=== PATIENT | female | born 1980 | race Caucasian/White ===

== ENCOUNTER 2018-07-30 18:12 | Emergency (ER) | payer OTHER ==
[~2018-07-30] VITALS: Ht 167.6 cm; Wt 69.0 kg
[~2018-07-30 18:12] MED LIST: AMBIEN 5 MG TABL5 M1; CIPRO500 MG PO; HYDROCODON-ACE1 EACH PO; HYDROCORTISONE30 G9 RECTAL; NORCO 5-325 TA1 EACH PO; VITAMIN D31000 UNI2; ZOFRAN ODT4 MG PO
[2018-07-30] MEDS ORDERED: XANAX 0.25 MG0.25 MG PO (18:23)
[2018-07-30] MEDS ORDERED: CYTOMEL 25 MCG25 MC1 PO (18:26)
[2018-07-30] MEDS ORDERED: SYNTHROID88 MCG PO (18:27)
[2018-07-30 18:52] LABS: ABSOLUTE BASOPHILS 0.1 thou/uL (0.0-0.2); ABSOLUTE EOSINOPHILS 0.1 thou/uL (0.0-0.7); ABSOLUTE LYMPHOCYTES 2.2 thou/uL (0.8-5.3); ABSOLUTE MONOCYTES 0.4 thou/uL (0.0-1.2); ABSOLUTE NEUTROPHILS 1.3 thou/uL (1.6-8.1); BASOPHILS 2.9 %; EOSINOPHILS 1.9 %; HEMATOCRIT 42.7 % (37.0-47.0); HEMOGLOBIN 14.4 gm/dL (12.0-15.0); LYMPHOCYTES 53.8 %; MCH 30.3 pg (26.0-34.0); MCHC 33.7 g/dL (28.0-37.0); MCV 89.8 fL (80.0-100.0); NUCLEATED RBCS 0 /100WBC; PLATELET COUNT* 248 thou/uL (150-400); POLYS 32.4 %; RBC 4.75 mil/uL (4.20-5.00); RDW-CV 13.7 % (10.5-14.5)
[2018-07-30 18:56] LABS: CALCIUM 8.7 mg/dL (8.5-10.1); CREATININE 0.8 mg/dL (0.6-1.3); POTASSIUM 3.5 mmol/L (3.5-5.1)
[2018-07-30 19:00] LABS: ALBUMIN 4.3 g/dL (3.4-5.0); TOTAL BILIRUBIN 0.7 mg/dL (<0.1-1.0); TOTAL PROTEIN 7.6 g/dL (6.4-8.2)
[2018-07-30 19:49] VITALS: BP 93/44
== END 2018-07-30 19:50 | disposition home or self-care (01) ==
LOC: M.ERS 18:12
PROVIDERS: Personal Emergency Response Attendant
DX: F41.0 Panic disorder [episodic paroxysmal anxiety] (principal); F10.129 Alcohol abuse with intoxication, unspecified; Y90.8 Blood alcohol level of 240 mg/100 ml or more; M79.7 Fibromyalgia; Z86.14 Personal history of Methicillin resistant Staphylococcus aureus infection

== ENCOUNTER 2019-03-03 07:14 | Emergency (ER) | payer OTHER ==
[~2019-03-03] VITALS: Ht 165.1 cm; Wt 65.8 kg
[~2019-03-03 07:14] MED LIST changes: +CYTOMEL 25 MCG25 MC1 PO; +SYNTHROID88 MCG PO; +XANAX 0.25 MG0.25 MG PO
[2019-03-03 08:17] LABS: ABSOLUTE LYMPHOCYTES 1.1 thou/uL (0.8-5.3); ABSOLUTE MONOCYTES 0.5 thou/uL (0.0-1.2); ABSOLUTE NEUTROPHILS 3.9 thou/uL (1.6-8.1); BASOPHILS 0.9 %; EOSINOPHILS 0.1 %; HEMATOCRIT 40.8 % (37.0-47.0); HEMOGLOBIN 13.7 gm/dL (12.0-15.0); LYMPHOCYTES 19.6 %; MCH 31.6 pg (26.0-34.0); MCHC 33.6 g/dL (28.0-37.0); MCV 93.8 fL (80.0-100.0); MONOCYTES 8.2 %; MPV 7.6 fl. (7.2-11.1); NUCLEATED RBCS 0 /100WBC; PLATELET COUNT* 180 thou/uL (150-400); POLYS 71.2 %; RBC 4.35 mil/uL (4.20-5.00); RDW-CV 16.8 % (10.5-14.5); WBC 5.5 thou/uL (4.0-11.0)
[2019-03-03 08:30] LABS: ANION GAP 15 mmol/L (7-16); BUN 11 mg/dL (7-18); CALCIUM 8.7 mg/dL (8.5-10.1); CHLORIDE 101 mmol/L (98-107); CO2 24 mmol/L (21-32); CREATININE 0.8 mg/dL (0.6-1.3); GLUCOSE 94 mg/dL (70-99); POTASSIUM 3.6 mmol/L (3.5-5.1); SODIUM 140 mmol/L (136-145)
[2019-03-03 08:38] LABS: URINE BLOOD 2+ (Negative); URINE CLARITY CLEAR; URINE COLOR YELLOW; URINE GLUCOSE-RANDOM NEGATIVE (Negative); URINE LEUKOCYTES-REFLEX TRACE (Negative); URINE NITRITE-REFLEX NEGATIVE (Negative); URINE PROTEIN TRACE (Negative); URINE SPECIFIC GRAVITY >= 1.030 (1.005-1.030); URINE UROBILINOGEN 0.2 E.U./dl (0.2-1.0)
[2019-03-03 08:39] LABS: ICTOTEST (BILI CONFIRMATORY) Negative (Negative); URINE BILIRUBIN 1+ (Negative); URINE KETONES 3+ (Negative)
[2019-03-03 08:40] LABS: ALBUMIN 4.3 g/dL (3.4-5.0); ALKALINE PHOSPHATASE 65 U/L (46-116); LIPASE 166 U/L (73-393); SGOT 43 U/L (15-37); SGPT 34 U/L (30-65); TOTAL BILIRUBIN 1.5 mg/dL (<0.1-1.0); TOTAL PROTEIN 7.2 g/dL (6.4-8.2); TROPONIN-I LEVEL <0.06 ng/mL (<0.06)
[2019-03-03 08:52] LABS: BACTERIA-REFLEX 1-9 Few /HPF (None Seen); CASTS None Seen /LPF (None Seen); CRYSTALS None Seen /LPF (None Seen); MUCUS None Seen strn/LPF (None Seen); SQUAMOUS >10 Many /LPF (0-3); URINE WBC-REFLEX 0-5 Rare /HPF (0-5)
[2019-03-03] MEDS ORDERED: ZOFRAN ODT4 MG DISSOLVE (09:02)
[2019-03-03] MEDS ORDERED: BACTRIM DS TAB1 EACH PO (09:20)
[2019-03-03 09:23] VITALS: BP 113/68
--- NOTE | 2019-03-03 10:50 | EKG ---
[place] [address] ELECTROCARDIOGRAM REPORT Name: ALBER ATKINSON Room: [facility]#: [id number] Admission: 03/03/19 Attend Phys: Discharge: 03/03/19 Date of : 76 Report #: [id number] THIS REPORT FOR: //name// [facility] ED Test Date: 2019-03-03 Test Time: 08:02:01 Pat Name: ALBER CHINA Department: Room: Gender: F Therapeutic Sales Specialist: Latesha GAUTAM : 1980 Requested By: Antelmo Hernandez Order Number: [id number] MD: Surya Bustos Measurements Intervals [place] Rate: 87 P: 16 AL: 161 QRS: 36 QRSD: 93 T: 51 QT: 389 QTc: 468 Interpretive Statements Sinus rhythm No previous ECG available for comparison Electronically Signed On 03-03-2019 10:50:32 CDT by Surya Bustos [email or web address] <ELECTRONICALLY SIGNED> By: Surya Bustos MD, [facility] 03/03/19 1050 [id number] Surya Bustos MD, FACC /EPI
== END 2019-03-03 09:24 | disposition home or self-care (01) ==
LOC: M.ERS 07:14
PROVIDERS: Emergency Medicine Emergency Medical Services
DX: R19.7 Diarrhea, unspecified (principal); R11.2 Nausea with vomiting, unspecified; M79.7 Fibromyalgia